=== PATIENT | female | born 1960 | race Caucasian/White ===

== ENCOUNTER 2017-01-21 21:17 | Observation (INO) | payer BC ==
[2017-01-21] MEDS ORDERED: NITROGLYCERIN 0.4 MG/TAB BTL SL ONE (21:29)
[2017-01-21] MEDS ORDERED: ASPIRIN 81 MG TAB.CHEW PO ONE (21:30)
[2017-01-21] MEDS ORDERED: ASPIRIN 81 MG TAB.CHEW ONE (21:37)
[2017-01-21 21:40] LABS: Hematocrit 38.1 % (37.0-47.0); Hemoglobin 12.9 gm/dL (12.5-16.0); Mean Cell Volume 89.6 fl (78-100); Mean Corpuscular Hemoglobin 30.4 pg (27-31); Mean Corpuscular Hgb Conc 33.9 g/dl (32-36); Mean Platelet Volume 10.4 fl (6.0-9.5); Neutrophil # 3.6 K/mm3 (1.3-6.0); Neutrophil % 48.8 % (42-75.0); Platelet Count 303 K/mm3 (150-450); Red Blood Count 4.25 M/mm3 (4.2-5.4); White Blood Count 7.5 K/mm3 (4.0-10.5)
--- NOTE | 2017-01-21 21:47 | ERNOTE ---
Chest Pain/Cardiac HPI Chief Complaint: Chest Pain Time Seen by Provider: 01/21/17 21:26 Source: patient Exam Limitations: no limitations Immunizations: IMMUNIZATION HX Immunizations Up to Date Yes History of Influenza Vaccine No Hx Pneumococcal Vaccination No Allergies/Adverse Reactions: Allergies adhesive Allergy (Mild, Verified 04/27/16 08:55) EKG PATCHES CAUSE HIVES cortisone [Cortisone] Allergy (Mild, Verified 04/27/16 08:55) PATCH CAUSED Hives Sulfa (Sulfonamide Antibiotics) Allergy (Mild, Verified 04/27/16 08:55) Hives Home Medications: HOME MEDICATIONS Acetaminophen [Tylenol] 500 - 1,000 mg PO Q6H PRN 11/12/14 [Last Taken Unknown] Cholecalciferol (Vitamin D3) [Vitamin D3] 2,000 unit PO DAILY 04/17/16 [Last Taken Unknown] Ibuprofen [Motrin] 200 mg PO Q6H PRN 04/17/16 [Last Taken Unknown] Narrative: Past substernal pressure approximately 6 out of 10 approximately 2 hours prior to presentation to the ER at rest. The pain radiated to the left side of the chest right side of the chest and to her back. Subsequently patient presented to the ER. Patient's last meal was 4 hours prior to the beginning of the chest pain. He denies any diaphoresis shortness of breath. Review of Systems - Review of Systems Constitutional: Present: no symptoms reported EYE: Present: no symptoms reported ENT: Present: no symptoms reported Respiratory: Present: no symptoms reported Cardiology: Present: See HPI Gastrointestinal/Abdominal: Present: no symptoms reported Genitourinary: Present: no symptoms reported Musculoskeletal: Present: no symptoms reported Skin: Present: no symptoms reported - Patient's Past Medical History Patient History - Medical: Anxiety, Arthritis, GERD Patient History - Cardiac/Respiratory: Other Patient History - Cancer: Other Patient History - Surgical Procedures: Cancer Surgery, Colonoscopy, D & C, EGD, Tubal Ligation, Other Patient History - Other: None - Family History Brother Family History - Medical: , No pertinent hx, Other Family History - Cardiac/Respiratory: Coronary Heart Disease Father Family History - Medical: , No pertinent hx Family History - Cardiac/Respiratory: No pertinent hx Grandfather-Maternal Family History - Medical: , No pertinent hx Family History - Cardiac/Respiratory: CVA/Stroke Grandfather-Paternal Family History - Medical: Family History - Cardiac/Respiratory: CVA/Stroke Grandmother-Maternal Family History - Medical: , No pertinent hx Family History - Cardiac/Respiratory: Coronary Heart Disease Grandmother-Paternal Family History - Medical: No pertinent hx Family History - Cardiac/Respiratory: Pneumonia Mother Family History - Medical: , Diabetes Type 2, Other Family History - Cardiac/Respiratory: No pertinent hx Sister Family History - Medical: , Diabetes Type 2, Other Family History - Cardiac/Respiratory: No pertinent hx - Social History Living Situations: home Abuse History: No History of abuse Psych History: Hx of Anxiety, Hx of Depression Smoking Status: Never smoker Alcohol Use: none Drug Use: none - Immunizations Immunizations Up to Date: Yes Hx Pneumococcal Vaccination: No History of Influenza Vaccine: No Physical Exam - Physical Exam General Appearance: Present: wd/wn, alert, no apparent distress - patient appears nervous Head Exam: Present: normal inspection Neck: Present: normal inspection, nontender Respiratory: Present: no respiratory distress, normal breath sounds, no accessory muscle use, chest nontender, lungs clear Cardiovascular/Chest: Present: regular rate, rhythm, no murmur, normal peripheral pulses Gastrointestinal/Abdominal: Present: normal bowel sounds, nondistended, soft, no organomegaly - does have some discomfort and pain with deep palpation upon direct palpation of the mid epigastric area however she states this is a different pain than the chest pressure she is feeling. Back Exam: Present: normal inspection ED Progress - Results and Orders Patient's Lab Results:: I have reviewed the patient's lab results. - Vital Signs Patient's Vital Signs:: I have reviewed the patient's vital signs. Vital Signs: Vital Signs 01/21/17 01/21/17 21:22 21:40 Temperature 36.9 C Pulse Rate 70 68 Respiratory 18 Rate Blood Pressure 196/90 O2 Sat by Pulse 98 Oximetry - EKG EKG read: Interp. by me EKG Comments: Sinus rhythm - X-Ray X-Ray #1 X-Ray: chest - Progress/Reassessment Chief Complaint: Chest Pain Plan - Plan Plan: The patient presented with chest pressure with radiation of the chest pressure to the left side of the chest right side of the chest and the back. Following sublingual nitroglycerin patient's chest pressure completely resolved. Dr. Roman with consult in regards to this admission and she graciously accepted. Departure - Departure Clinical Impression: Chest pain Qualifiers: Chest pain type: unspecified Qualified Code(s): R07.9 - Chest pain, unspecified Disposition: [facility] Condition: Fair Referrals: Gianna Yin MD [Primary Care Provider] -
[2017-01-21 21:52] LABS: INR 0.97 INR (0.90-1.10); Partial Thrombolplastin Time 26.8 Seconds (24-32); Prothrombin Time (Patient) 10.1 Seconds (9.4-11.4)
[2017-01-21 21:59] LABS: Troponin I Less than 0.017 ng/ml (0.00-0.10)
[2017-01-21 22:03] LABS: ALT 28 U/L (19-67); AST 28 U/L (0-48); Albumin * 3.4 gm/dl (3.4-5.0); Alkaline Phosphatase * 79 U/L (50-170); BUN/Creatinine Ratio 22.1 (9.0-21.6); Bilirubin, Total 0.3 mg/dL (0.0-1.1); Blood Urea Nitrogen 17 mg/dL (3-23); Ca. Corrected For Albumin 8.8 mg/dL (8.4-10.2); Calcium * 8.6 mg/dL (7.9-10.9); Carbon Dioxide 30.1 mmol/L (24-32.6); Chloride 107 mmol/L (97-106); Glucose * 92 mg/dL (70-110); Potassium 4.1 mmol/L (3.4-4.6); Sodium 143 mmol/L (132-142); Total Protein 6.7 gm/dL (6.2-8.2)
[2017-01-22 06:29] VITALS: BP 114/62
--- NOTE | 2017-01-22 10:02 | HP ---
Chief Complaint - Chief Complaint Date of Service: 01/22/17 Time of Service: 10:01 Chief Complaint: sudden onset of chest pain at 8.45 pm on 01/21/17. History of Present Illness: Patient is a 56-year-old WF with a H/O GERD [ on no medication] who had sudden onset of chest pain at approximately 8:45 PM on 01/21/17 which was midsternal, radiated to her back, graded as a 7/10, squeezing in character, associated with diaphoresis and no nausea. She took 2 Tylenol w/o relief. The pain lasted for approximately 20-30 minutes till she was given SL NTG X1 in the ER. Her BP in the ER 196/90. She states this pain did not feel like her usual GERD. Her meal was at 5:30 PM which was a hamburger sandwich and salad. EKG and cardiac enzymes were WNL she was admitted for further care and treatment. - Patient's Past Medical History Additional info: PAST MEDICAL HISTORY: GERD controlled by diet. OA -uses Motrin/Tylenol as needed. Bronchitis. Pneumonia. Sigmoid diverticulosis [colonoscopy 11/2014]. Additional Info: PAST SURGICAL HISTORY: Tonsillectomy 1961; wisdom teeth extraction 1974; tubal ligation 1992; esophageal stricture dilatation 2011, 2013. screening colonoscopy-sigmoid diverticulosis 11/2014. Meniscal tear repair LT knee 2015; resection of CA of tongue RT side 2015. Patient History - Other: None LMP (females 10-50): Menopausal - Family History Brother Family History - Medical: - 33carcinoma of heart with metastasis Father Family History - Medical: - 82colon cancer Mother Family History - Medical: - 82T2 DM, CHF, dementia Sister Family History - Cancer: No pertinent family hx Grandfather-Maternal Family History - Cancer: No pertinent family hx - Social History Living Situations: spouse Psych History: Hx of Anxiety, Hx of Depression Smoking Status: Never smoker Have you smoked in the past 12 months: No Do you dip or chew tobacco: No Alcohol Use: none Drug Use: none - Immunizations Immunizations Up to Date: Yes Hx Pneumococcal Vaccination: No History of Influenza Vaccine: No Review Of Systems (GEN) - Review of Systems Generalized/Overall Review: Absent: Weight loss, Weight gain Respiratory: Absent: Cough, Shortness of Breath Cardiac: Absent: Edema Abdominal: Absent: Nausea, Vomiting Immunizations: IMMUNIZATION HX Immunizations Up to Date Yes History of Influenza Vaccine No Hx Pneumococcal Vaccination No Allergies/Adverse Reactions: Allergies Allergy/AdvReac Type Severity Reaction Status Date / Time adhesive Allergy Mild EKG Verified 04/27/16 08:55 PATCHES CAUSE HIVES cortisone [Cortisone] Allergy Mild PATCH Verified 04/27/16 08:55 CAUSED Hives Sulfa (Sulfonamide Allergy Mild Hives Verified 04/27/16 08:55 Antibiotics) Home Medications: HOME MEDICATIONS Acetaminophen [Tylenol] 500 - 1,000 mg PO Q6H PRN 11/12/14 [Last Taken Unknown] Cholecalciferol (Vitamin D3) [Vitamin D3] 2,000 unit PO DAILY 04/17/16 [Last Taken Unknown] Ibuprofen [Motrin] 200 mg PO Q6H PRN 04/17/16 [Last Taken Unknown] Exam - Exam Vital Signs: Vital Signs - Last Taken Temp 36.6 C 01/22/17 06:29 Pulse 56 L 01/22/17 06:29 Resp 18 01/22/17 06:29 BP 114/62 01/22/17 06:29 Pulse Ox 97 01/22/17 06:29 Constitutional: Present: Middle aged, Obese - in NAD , alert and oriented. ENT Exam: Present: hearing grossly normal, moist mucous membranes Eye Exam: bilateral eye: PERRL, EOMI Neck: Present: normal inspection, trachea midline Respiratory: Present: lungs clear, normal breath sounds. Absent: no accessory muscle use Cardiovascular/Chest: Present: regular rate, rhythm. Absent: tachycardia, chest tender Peripheral Pulses: carotid (R): 2+, carotid (L): 2+ Abdomen: Present: Normal bowel sounds, soft, nontender, obese. Absent: guarding Extremity: Present: normal range of motion, normal inspection. Absent: lower extremity edema Skin Exam: Present: normal color, warm/dry Eye contact: Present: cooperative, good eye contact, normal speech Thoughts: Present: normal thought pattern, no apparent hallucination, normal mood /affect Diagnostic Studies: Laboratory Tests 01/21/17 21:35 WBC 7.5 Hgb 12.9 Hct 38.1 Plt Count 303 01/21/17 21:35 Plasma Sodium 143 H Potassium 4.1 D Chloride 107 H Carbon Dioxide 30.1 BUN 17 D Creatinine 0.77 Est GFR (Non-Af Amer) 82 Random Glucose 92 Calcium Adj for Albumin 8.8 Total Bilirubin 0.3 AST 28 ALT 28 Alkaline Phosphatase 79 Total Protein 6.7 Albumin 3.4 * 01/21/17 21:35 Troponin I Less than 0.017 CXR 01/21/2017: 1. Scattered granulomas present. 2. DJD of spine and shoulders present. 3. No acute cardiopulmonary processes identified. EK01/21/2017: Sinus bradycardia. No acute changes Assessment/Plan - Narrative Narrative: 1. Chest discomfort: Risk factors include postmenopausal status, sedentary lifestyle. Check lipid profile in a.m. Does not have chest wall tenderness/epigastric tenderness. If cardiac markers and EKG normal, may require stress testing as an outpatient. 2. Elevated BP without diagnoses of HTN: BP in ER 190/90. Continue to monitor and document BP once or twice a week. 3. Obesity: BMI 33.0. 4. Other chronic factors: This include CA tongue, GERD, esophageal stricture and sigmoid diverticulosis.
--- NOTE | 2017-01-22 10:06 | DS ---
(1) Chest pain Problem: Acute Qualifiers: Chest pain type: unspecified Qualified Code(s): R07.9 - Chest pain, unspecified (2) Elevated BP without diagnosis of hypertension Problem: Acute (3) GERD (gastroesophageal reflux disease) Problem: Chronic (4) Obesity Diagnosis(s): BMI-33.0 Problem: Chronic Qualifiers: Obesity type: unspecified obesity type Description of Stay: DATE OF ADMISSION: 01/21/17. DATE OF DISCHARGE: 01/22/17. DIAGNOSTICS: NONE. DISCHARGE SUMMARY: Vivian Murphy is a 56-year-old WF with a H/O GERD [ controlled by diet] who came to the ER for evaluation of squeezing, midsternal chest pain which started at 8: 45 PM on 01/21/17 graded 01/14, radiating into the mid back associated with diaphoresis, lasting 20-30 minutes, relieved by SL NTG 1. EKG and cardiac enzymes WNL. BP in ER elevated at 190/90. Patient admitted into observation for the above. Serial EKGs and cardiac enzymes WNL. Patient given information on GERD. Discharged on baby aspirin 81 mg daily and vitamin D3 2000 units daily. She will be scheduled as an outpatient for a regular stress test. Procedures Performed: none Results and Findings: Laboratory Tests 01/21/17 21:35 WBC 7.5 Hgb 12.9 Hct 38.1 Plt Count 303 01/22/17 03:25 Triglycerides 62 Cholesterol 153 LDL Cholesterol 90 HDL Cholesterol 51 01/21/17 21:35 Potassium 4.1 D BUN 17 D Creatinine 0.77 Est GFR (Non-Af Amer) 82 Random Glucose 92 01/21/17 01/22/17 21:35 03:25 Troponin I Less than 0.017 Less than 0.017 Discharge Disposition: Home self care Disposition: Home self-care Condition: Undetermined Discharge Activity: Activity as tolerated Discharge Diet: Low fat/chol, High Fiber Referrals: Gianna Yin MD [Primary Care Provider] - Problem Oriented Discharge Instructions to Patient/Family: Indigestion, Easy-to -Read, Heartburn, [id number] Additional Patient Instructions (free text): Follow up with Dr. Yin on January 29 at 2:15. Stress test on February 05 at 8am. Baby ASA 81 mg PO daily. Vitamin D3 2000 units PO daily PO daily with food. Both over the counter meds [cheaper if bought in a bottle in a 100]. Can use tylenol arthritis for pain rather than NSAIDS. [up to 1.3 gms [650 mg] PO TID]. Please give hand out on GERD. Complete Home Medications List: Complete Home Medication List: Acetaminophen [Tylenol] 500 - 1,000 mg PO Q6H PRN 11/12/14 Cholecalciferol (Vitamin D3) [Vitamin D3] 2,000 unit PO DAILY 04/17/16 Ibuprofen [Motrin] 200 mg PO Q6H PRN 04/17/16 Amb Orders for Discharge: Regular Exercise Stress Test Time Frame: 2 Weeks, Location: Determined By Patient
== END 2017-01-22 10:45 | disposition home or self-care (01) ==
LOC: ER 21:17 → MS 22:02 → UNDOADMOB 22:02
PROVIDERS: ADMIT Internal Medicine; ATTEND Internal Medicine
DX: R07.9 Chest pain, unspecified (principal); R03.0 Elevated blood-pressure reading, without diagnosis of hypertension; K21.9 Gastro-esophageal reflux disease without esophagitis; E66.9 Obesity, unspecified; Z68.33 Body mass index [BMI] 33.0-33.9, adult; M15.9 Polyosteoarthritis, unspecified; F41.8 Other specified anxiety disorders
CPT/HCPCS: 36415; 71020; 80053; 80061; 82553; 84484; 85025; 85610; 85730; 93005; 99284; G0378

== ENCOUNTER 2017-06-14 07:04 | Day surgery (SDC) | payer BC ==
[~2017-06-14 07:04] MED LIST: NORMAL SALINE 1,000 ML IV PRN
[2017-06-14] MEDS ORDERED: NORMAL SALINE 1,000 ML IV ONE ×2 (07:30)
[2017-06-14 11:44] VITALS: BP 168/87
[2017-06-14] MEDS ORDERED: ONDANSETRON HCL 4 MG TABLET PO PRN (12:11)
[2017-06-14] MEDS ORDERED: ONDANSETRON HCL 4 MG TABLET PO ONE (12:18)
== END 2017-06-14 07:05 | disposition home or self-care (01) ==
LOC: SUR 07:04
PROVIDERS: ATTEND Urology
PROC: 0WHR8YZ Insertion of Other Device into Genitourinary Tract, Via Natural or Artificial Opening Endoscopic (ICD-10-PCS; principal; 2017-06-14 08:00)
DX: N13.0 Hydronephrosis with ureteropelvic junction obstruction (principal); Z68.37 Body mass index [BMI] 37.0-37.9, adult